=== PATIENT | female | born 1955 | race Caucasian/White ===

== ENCOUNTER 2016-08-21 12:30 | Emergency (ER) | payer BC, OTHER ==
[~2016-08-21] VITALS: Ht 160 cm; Wt 94.7 kg
[2016-08-21 13:09] VITALS: BP 155/91; PULSE 78; RESP 16; TEMP 97.8; O2SAT 96
[2016-08-21] MEDS ORDERED: LEVO.125 PO (14:13)
--- NOTE | 2016-08-21 14:25 | PD ---
HPI Chief Complaint: Complaint Time Seen by Provider: 14:25 Travel History International Travel<30 days: No Contact w/Intl Traveler<30days: No Traveled to known affect area: No History of Present Illness HPI 61-year-old female with a history of hypothyroidism presents to the emergency department for evaluation of pain in left shoulder, left elbow, left wrist and thumb and right hand. The patient states that about 2 months ago she developed pain in her right shoulder and was seen by an orthopedist and given an intra- articular cortisone injection which improved her symptoms. States that about 3 weeks ago she developed pain in her left shoulder but has not been able to see a doctor yet. States that over the past 2-3 days she's developed pain and swelling in her left wrist, left hand thumb, right hand second and third fingers. States that this morning when she woke up she also had pain in the left elbow and decreased range of motion in the left elbow. Denies any injury or trauma to any of her joints. States she has had a history of arthritis in her knees for years but states this pain in her upper extremities is new. States it feels like arthritic pain. She has been taking tylenol without improvement of symptoms. She also states she has had urinary frequency for 1 month and has a history of recurrent urinary tract infections. Denies burning with urination, painful urination, hematuria, fever, chills, abdominal pain, chest pain, shortness of breath. She is a [place] from [place], came to [facility] 1 month ago and will return in October. No other complaints. PFSH Past Medical History Arthritis: Yes Diminished Hearing: No Immunizations Current: Yes Thyroid Disease: Yes Tetanus Vaccination: Unknown Influenza Vaccination: Yes ?: Not Menopausal: Yes Past Surgical History Surgical History: No Previous Surgery Social History Alcohol Use: Yes Tobacco Use: No Substance Use: No Allergies-Medications (Allergen,Severity, Reaction): Coded Allergies: No Known Allergies (Unverified , 08/21/16) Reported Meds & Prescriptions Reported Meds & Active Scripts Active Diclofenac Sodium DR (Diclofenac Sodium) 75 Mg Tabdr 75 Mg PO BID 7 Days Reported Synthroid (Levothyroxine Sodium) 125 Mcg Tab 125 Mcg PO DAILY Review of Systems Except as stated in HPI: all other systems reviewed are Neg Physical Exam Narrative GENERAL: Well-nourished and well-developed pleasant female patient in no acute distress who is nontoxic appearing. SKIN: Warm and dry. HEAD: Normocephalic and atraumatic. EYES: No injection, drainage, or hyphema noted. PERRLA. EOMI. ENT: No nasal drainage noted. Oropharynx is clear. NECK: Supple and the trachea is midline. CARDIOVASCULAR: Regular rate and rhythm. RESPIRATORY: Breath sounds are equal bilaterally with no accessory muscle use, wheezing, rhonchi, or crackles. MUSCULOSKELETAL: There is mild swelling in left wrist with tenderness to palpation, full range of motion. Mild swelling in right hand second and third fingers but full range of motion. Left elbow with slight decrease in flexion but no swelling. There is no erythema or warmth noted to any joints. No obvious deformities, cyanosis, or ecchymosis is present throughout the upper and lower extremities. Patient has full range of motion without any signs of neurovascular compromise. Radial pulses are 2+ bilaterally. NEUROLOGICAL: Awake, alert, and oriented. Normal speech and gait. Cranial nerves are grossly intact. Data Data Last Documented VS Vital Signs Date Time Temp Pulse Resp B/P Pulse Ox O2 Delivery O2 Flow Rate FiO2 08/21/16 13:09 97.8 78 16 155/91 96 Orders Urinalysis - C+S If Indicated (08/21/16 14:24) Dexamethasone Inj (Decadron Inj) (08/21/16 14:30) Labs Laboratory Tests Test 08/21/16 14:25 Urine Color YELLOW Urine Turbidity CLEAR Urine pH 5.5 Urine Specific [place] 1.028 Urine Protein NEG mg/dL Urine Glucose (UA) NEG mg/dL Urine Ketones NEG mg/dL Urine Occult Blood TRACE Urine Nitrite NEG Urine Bilirubin NEG Urine Leukocyte Esterase NEG Urine RBC 0-3 /hpf Urine WBC 0-2 /hpf Urine Squamous Epithelial > 8 /hpf Cells Urine Bacteria FEW /hpf Microscopic Urinalysis Comment CULT NOT INDICATED MDM Medical Decision Making Medical Screen Exam Complete: Yes Emergency Medical Condition: Yes Differential Diagnosis Arthritis versus rheumatoid versus osteoarthritis versus strain Narrative Course 61-year-old female presents to the emergency department for evaluation of multiple joint pains and urinary frequency. Patient is afebrile, vital signs are stable. No injury or trauma to her joints. She's had no fever, cough or cold symptoms or anything to suggest a viral illness. I suspect that the patient may have some sort of undiagnosed rheumatologic condition. Without a traumatic injury and with full range of motion in all of her joints I really don 't see any emergent indication for imaging. We'll do a urinalysis to evaluate for UTI. Patient is treated with Decadron 8 mg IM. Urinalysis shows trace occult blood, squamous epithelial cells and few bacteria. Not indicative of a urinary tract infection. Discussed supportive care with the patient. We'll prescribe for diclofenac. Discussed when to return to the emergency department. Advised to follow-up with her PCP as an outpatient for further diagnostic testing and rheumatologic evaluation. Diagnosis Primary Impression: Pain, joint, multiple sites Referrals: Primary Care Physician Patient Instructions: Arthralgia (ED), General Instructions Additional Instructions: Apply ice for 20 minutes on, 20 minutes off. Take medication as prescribed with food and a full glass of water. Follow-up with your Primary Care Physician. Return to the ED for any acute worsening of symptoms. Med/Other Pt SpecificInfo: Prescription(s) given Scripts Diclofenac Sodium DR 75 Mg Tabdr75 Mg PO BID 7 Days Ref 0 Prov:Last Arechiga MD 08/21/16 Disposition: 01 DISCHARGE HOME Condition: Stable Kimberli Prieto Aug 21, 2016 14:25
[2016-08-21] MEDS ORDERED: DEXAMETHASONE SOD PHOS 4 MG/ML VIAL IM ONE (14:30)
[2016-08-21 14:35] LABS: BLOOD, URINE TRACE (NEG); GLUCOSE,URINE NEG (NEG); KETONE, URINE NEG (NEG); NITRITE,URINE NEG (NEG); PH, URINE 5.5 (5.0-8.5)
[2016-08-21 15:02] LABS: URINE COLOR YELLOW (YELLW/STRAW)
[2016-08-21 15:03] LABS: BACTERIA, URINE FEW /hpf; COMMENT (UR) CULT NOT INDICATED; CULTURE IF INDICATED CULT NOT INDICATED; RBC, URINE 0-3 /hpf (0-3); SQUAMOUS EPITHELIAL CELL URINE > 8 /hpf (0-5); WBC, URINE 0-2 /hpf (0-5)
[2016-08-21] MEDS ORDERED: DICL75TA PO (15:08)
== END 2016-08-21 15:21 | disposition home or self-care (01) ==
LOC: PHED 12:30 → PHEFT 15:21
DX: M25.512 Pain in left shoulder (principal); M25.522 Pain in left elbow; M25.532 Pain in left wrist; R22.33 Localized swelling, mass and lump, upper limb, bilateral; R35.0 Frequency of micturition; E03.9 Hypothyroidism, unspecified; Z87.440 Personal history of urinary (tract) infections; Z87.39 Personal history of other diseases of the musculoskeletal system and connective tissue
CPT/HCPCS: 81001; 96372; 99283; J1100